=== PATIENT | male | born 1975 ===

== ENCOUNTER 2022-10-20 20:43 | Emergency (ER) | payer SELFPAY ==
[~2022-10-20] VITALS: Ht 180.3 cm; Wt 79.0 kg
[2022-10-20 20:54] VITALS: BP 147/114; PULSE 115; RESP 18; TEMP 98.7
== END 2022-10-20 21:49 | disposition left against medical advice (07) ==
LOC: EMS 20:50
DX: R11.10 Vomiting, unspecified (principal); Z53.21 Procedure and treatment not carried out due to patient leaving prior to being seen by health care provider
CPT/HCPCS: 99281; Z7502